=== PATIENT | male | born 1990 | race Hispanic/Latino ===

== ENCOUNTER 2021-09-01 12:45 | Emergency (ER) | payer SELFPAY ==
[2021-09-01] MEDS ORDERED: Xylocaine 1% w/ Epi 1:100K 10 ML VIAL ONE (13:39)
== END 2021-09-01 15:46 | disposition home or self-care (01) ==
LOC: ERS 12:45
DX: S31.21XA Laceration without foreign body of penis, initial encounter (principal); X58.XXXA Exposure to other specified factors, initial encounter
CPT/HCPCS: 12001

== ENCOUNTER 2025-03-24 11:05 | Emergency (ER) | payer SELFPAY ==
[2025-03-24] MEDS ORDERED: Cyclobenzaprine 10 MG TAB ONE (12:23)
[2025-03-24 13:33] LABS: Bacteria/HPF None Seen HPF (None Seen); CAUTI Indications for Culture Pelvic or flank pain; Glucose, Urine (Dipstick) Normal (Negative); Leukocyte Negative Leu/uL (Negative); Protein, Urine (Dipstick) Negative (Neg-Trace); RBC/HPF 0-3 HPF (0-3); Specific Gravity, Urine 1.026 (1.002-1.036); WBC/HPF 0-3 HPF (0-3)
[2025-03-24 13:37] LABS: Urine Culture Reflex No No
== END 2025-03-24 14:48 | disposition home or self-care (01) ==
LOC: ERS 11:05
DX: R07.89 Other chest pain (principal)
CPT/HCPCS: 81001; 96372; 99283